=== PATIENT | female | born 1975 | race Caucasian/White ===

== ENCOUNTER → 2016-12-24 | Outpatient (CLI) | payer BC ==
--- NOTE | 2016-12-24 10:45 | XR ---
EXAMINATION TYPE: XR shoulder complete RT DATE OF EXAM: 12/24/2016 CLINICAL HISTORY: Right shoulder pain for 4 to 6 weeks. TECHNIQUE: Three views of the right shoulder are obtained. COMPARISON: None. FINDINGS: There is no acute fracture/dislocation evident in the right shoulder. Distal acromion mor phology is unremarkable. The acromioclavicular and glenohumeral joint spaces appear within normal cerrato its. The visualized ribs are intact and unremarkable. IMPRESSION: Unremarkable study.
== END | disposition home or self-care (01) ==
LOC: RADXRMAIN 10:23
PROVIDERS: ATTEND Family Medicine
DX: M24.819 Other specific joint derangements of unspecified shoulder, not elsewhere classified (principal)

== ENCOUNTER → 2016-12-28 | Outpatient (CLI) | payer BC ==
--- NOTE | 2016-12-28 12:04 | MR ---
EXAMINATION TYPE: MR shoulder RT wo con DATE OF EXAM: 12/28/2016 11:44 AM COMPARISON: NONE HISTORY: Right shoulder pain TECHNIQUE: Multiplanar multispin echo imaging of the right shoulder was performed. FINDINGS: Rotator cuff : There is thickening and heterogeneity of the supraspinatus tendon with focal increased signal noted felt to reflect partial intrasubstance tear. No evidence for full-thickness tear. Remai preet constituents of the rotator cuff are unremarkable. Bursa: No bursal effusion or thickening is seen. Musculature: There is no muscular tear, contusion, or atrophy. Acromioclavicular joint : Subacromial spurring resulting in mild impingement. Mild AC joint arthropat hy. Osseous structures : There are no fractures or regions of abnormal bone marrow signal intensity. Long biceps tendon : The biceps tendon is normally situated within the bicipital groove. No complete or partial biceps tendon tear is present. Glenohumeral Joint fluid : There is no glenohumeral joint effusion. Cartilage and Bone : No focal hyaline cartilage defects are noted. No Hill-Sachs, reverse Hill-Sachs, or bony Bankart lesions are seen. Labrum : There are no SLAP or soft tissue Bankart lesions. No paralabral cysts are seen. OTHER FINDINGS : none IMPRESSION: 1. Chronic tendinopathy supraspinatus tendon with focal intrasubstance tear. 2. Subacromial spurring with mild impingement.
== END | disposition home or self-care (01) ==
LOC: RADMRIMAIN 10:52
PROVIDERS: ATTEND Family Medicine
DX: S46.011A Strain of muscle(s) and tendon(s) of the rotator cuff of right shoulder, initial encounter (principal); M25.811 Other specified joint disorders, right shoulder

== ENCOUNTER → 2017-08-09 | Outpatient (CLI) | payer BC ==
[2017-08-09 13:52] LABS: Basophils # (A) 0.1 k/uL (0-0.2); Basophils % (A) 1 %; Eosinophils # (A) 0.2 k/uL (0-0.7); Eosinophils % (A) 2 %; HCT 40.3 % (34.0-46.0); HGB 13.3 gm/dL (11.4-16.0); Lymphocytes # (A) 3.1 k/uL (1.0-4.8); Lymphocytes % (A) 33 %; MCH 31.3 pg (25.0-35.0); MCHC 33.1 g/dL (31.0-37.0); MCV 94.7 fL (80.0-100.0); Mean Platelet Volume 7.3; Monocytes # (A) 0.4 k/uL (0-1.0); Monocytes % (A) 5 %; Neutrophils # (A) 5.3 k/uL (1.3-7.7); Neutrophils % (A) 57 %; Platelet Count 273 k/uL (150-450); RBC 4.25 m/uL (3.80-5.40); RDW 12.5 % (11.5-15.5); WBC 9.4 k/uL (3.8-10.6)
[2017-08-09 13:59] LABS: INR 1.1 (<1.2); Partial Thromboplastin Time 23.7 sec (22.0-30.0); Prothrombin Time 10.3 sec (9.0-12.0)
[2017-08-09 14:05] LABS: ALT 37 U/L (9-52); AST 28 U/L (14-36); Albumin 4.1 g/dL (3.5-5.0); Alkaline Phosphatase 72 U/L (38-126); Anion Gap 11 mmol/L; Blood Urea Nitrogen 9 mg/dL (7-17); Calcium 9.5 mg/dL (8.4-10.2); Carbon Dioxide 25 mmol/L (22-30); Chloride 105 mmol/L (98-107); Glucose 95 mg/dL (74-99); Potassium 3.7 mmol/L (3.5-5.1); Sodium 141 mmol/L (137-145); Total Bilirubin 0.4 mg/dL (0.2-1.3)
[2017-08-09 14:06] LABS: Appearance,Urine Cloudy (Clear); Bacteria,Urine Rare /hpf; Bilirubin,Urine Negative (Negative); Blood,Urine Negative (Negative); Color,Urine Yellow; Glucose,Urine (UA) Negative (Negative); Ketones,Urine Negative (Negative); Leukocyte Esterase,Urine Negative (Negative); Mucus,Urine Occasional /hpf; Nitrite,Urine Negative (Negative); Protein,Urine Trace (Negative); RBC,Urine 1 /hpf (0-5); Specific Gravity,Urine 1.025 (1.001-1.035); Squamous Epithelial Cell,Urine 10 /hpf (0-4); WBC,Urine 1 /hpf (0-5)
== END | disposition home or self-care (01) ==
LOC: LABWHC1 13:08
PROVIDERS: ATTEND Family Medicine
DX: Z01.812 Encounter for preprocedural laboratory examination (principal)
CPT/HCPCS: 36415; 80053; 81001; 85025; 85610; 85730

== ENCOUNTER 2019-04-07 06:24 | Day surgery (SDC) | payer BC ==
[2019-04-03 15:31] VITALS: BMI 33.5
[~2019-04-07 06:24] MED LIST: DEXAMETHASONE SOD PHOSPHATE 10 MG/ML 1 ML VIAL IV ONE; HEPARIN SODIUM,PORCINE 5,000 UNIT/ML 1 ML VIAL SQ ONE; LIDOCAINE 1% 20 ML VIAL (10MG/ML) FOR IV START INTRADERMA PRN; MIDAZOLAM 2 MG/2 ML VIAL IV PRN; ONDANSETRON 4 MG/2 ML VIAL IVP ONE; SCOPOLAMINE 1.5MG/72HR PATCH TRANSDERM ONE
[2019-04-07] MEDS: LACTATED RINGERS 1,000 ML IV SCH ×2 (07:10→07:55)
[2019-04-07] MEDS ORDERED: fentaNYL (PF) 50 MCG/ML 2 ML AMP IVP ONE ×2 (07:23→07:24)
[2019-04-07] MEDS ORDERED: DEXAMETHASONE SOD PHOSPHATE 4 MG/ML 1 ML VIAL ONE (07:52)
[2019-04-07] MEDS ORDERED: GLYCOPYRROLATE 0.2 MG/ML 2 ML VIAL ONE (07:52)
[2019-04-07] MEDS ORDERED: KETOROLAC 30 MG/ML 1 ML VIAL ONE (07:52)
[2019-04-07] MEDS ORDERED: NEOSTIGMINE 1 MG/ML 10 ML VIAL ONE (07:52)
[2019-04-07] MEDS ORDERED: LIDOCAINE 1% INJ 10MG/ML (20 ML MDV) ONE (07:52)
[2019-04-07] MEDS ORDERED: PROPOFOL 10 MG/ML 20 ML VIAL IV ONE (07:52)
[2019-04-07] MEDS ORDERED: fentaNYL (PF) 50 MCG/ML 2 ML AMP ONE (07:52)
[2019-04-07] MEDS ORDERED: ROPIVACAINE 5 MG/ML 30 ML VIAL ONE (07:52)
[2019-04-07] MEDS ORDERED: MIDAZOLAM 2 MG/2 ML VIAL ONE (07:52)
[2019-04-07] MEDS ORDERED: ROCURONIUM BROMIDE 10 MG/ML 10 ML VIAL IV ONE (07:52)
[2019-04-07] MEDS ORDERED: HYDROmorphone (PF) 1 MG/ML ONE (07:52)
--- NOTE | 2019-04-07 07:52 | P.GSHP ---
History of Present Illness H&P Date: 04/07/19 Chief Complaint: Incisional hernia 43-year-old female known per service. Patient has complaints of a slightly painful bulge in the upper midabdomen. This is thought to be related to previous cholecystectomy scar site. No nausea or vomiting. Increasing in size. Past Medical History Past Medical History: COPD, Fibromyalgia, GERD/Reflux, Osteoarthritis (OA), Pneumonia Additional Past Medical History / Comment(s): ? SEIZURES A CHILD,CHRONIC MIGRAINES, BACK PAIN, DIFFICULTY SLEEPING., (5) TATTOO'S., HX OF "HEAVINESS " IN CHEST., STATES YEAST INFECTIONS WHEN EVER SHE RECEIVES ANTIBIOTICS, 03/28/19 dog bite rt hand placed on augmentin. History of Any Multi-Drug Resistant Organisms: None Reported Past Surgical History: Bladder Surgery, Bowel Resection, Cholecystectomy, Hernia Repair, Hysterectomy, Tonsillectomy Additional Past Surgical History / Comment(s): 13 INCHES OF BOWEL REMOVED INFANT, SURGERY FOR ADHESIONS WITH MESH AT 8-10 YRS OLD., PARTIAL HYSTERECTOMY, UMBILICAL HERNIA., COLONOSCOPY.cystocele, rectocele, bladder suspension Past Anesthesia/Blood Transfusion Reactions: Previous Problems w/ Anesthesia, Family History of Problems w/ Anesthesia, Motion Sickness Additional Past Anesthesia/Blood Transfusion Reaction / Comment(s): STATES HEART STOPPED DURING ONE SURGERY. HX OF BLOOD TRANSFUSION AN INFANT. PTS MOTHER HAS PONV. Smoking Status: Current every day smoker - Past Family History Mother Family Medical History: Blood Disorder, Cancer Additional Family Medical History / Comment(s): BLADDER CANCER. PTS AUNT HAD BREAST CANCER ALSO. blood disorder pt unsure of name "she has to have her blood let out". Father Family Medical History: Cancer Additional Family Medical History / Comment(s): SKIN CANCER Medications and Allergies Home Medications Medication Instructions Recorded Confirmed Type Acetaminophen [Tylenol] 650 mg PO DIRECTED PRN 08/02/15 04/07/19 History Ranitidine HCl [Zantac] 150 mg PO DAILY PRN 08/02/15 04/07/19 History Amoxic-Pot Clav 875-125Mg 1 tab PO Q12HR 04/03/19 04/07/19 History [Augmentin 875-125] Allergies Allergy/AdvReac Type Severity Reaction Status Date / Time cat dander Allergy Intermediate Congestion Verified 04/07/19 06:51 grass pollen Allergy Intermediate Congestion Verified 04/07/19 06:51 Sulfa (Sulfonamide Allergy Mild Rash/Hives Verified 04/07/19 06:51 Antibiotics) adhesive Allergy skin Verified 04/07/19 06:51 irritation and peeling codeine AdvReac Mild Bumps on Verified 04/07/19 06:51 skin, rash PINE Allergy Intermediate Congestion Uncoded 04/07/19 06:51 Surgical - Exam Vital Signs Temp Pulse Resp BP Pulse Ox 97.8 F 79 16 144/78 98 04/07/19 06:48 04/07/19 06:48 04/07/19 06:48 04/07/19 06:48 04/07/19 06:48 Physical exam: General: Well-developed, well-nourished HEENT: Normocephalic, sclerae nonicteric Abdomen: Nontender, nondistended, reducible upper abdominal incisional hernia Extremities: No edema Neuro: Alert and oriented Assessment and Plan (1) Incisional hernia Narrative/Plan: Will proceed with repair open incisional hernia with mesh. Risks of bleeding, infection, recurrence, bladder and bowel injury, numbness, nerve injury were discussed with the patient. The patient understands and wishes to proceed. Current Visit: Yes Status: Acute Code(s): K43.2 - INCISIONAL HERNIA WITHOUT OBSTRUCTION OR GANGRENE SNOMED Code(s): 322556262
[2019-04-07] MEDS ORDERED: BUPIVACAINE (PF) 0.25% 30 ML VIAL SQ ONE (08:28)
[2019-04-07] MEDS ORDERED: NALOXONE 0.4 MG/ML 1 ML VIAL IV PRN (09:08)
[2019-04-07] MEDS ORDERED: HYDROcodone/APAP 5-325MG 1 EACH TAB PO PRN (09:08)
--- NOTE | 2019-04-07 09:15 | P.OP ---
Date of Procedure: 04/07/19 Procedure(s) Performed: PREOPERATIVE DIAGNOSIS: Reducible incisional hernia POSTOPERATIVE DIAGNOSIS: Same PROCEDURE: Reducible incisional hernia repair with mesh SURGEON: Jesus Alberto EBL: Minimal ANESTHESIA: Gen. COMPLICATIONS: None OPERATIVE PROCEDURE: Patient placed on the operating table in the supine position. Abdomen was prepped and draped in usual sterile fashion. The previous incision was excised in the epigastric region. A horizontal incision was made. Dissection through the subcutaneous tissues took place using electrocautery. A moderate sized was identified. The hernia sac was carefully dissected down to the level of the fascia where it was excised. There were 2 defects present. There were incorporated into one larger defect. This measured 3.5 x 2.5 cm. The 6.4 cm ventral ex mesh was placed beneath the fascia after the pre-peroneal space was dissected using electrocautery and blunt dissection. The mesh was then sutured to the fascia using trans-fascial 0 Ethibond sutures. The fascia was then reapproximated over the mesh using interrupted vest over pants mattress sutures that were 0 Ethibond as well. The folding edge was tacked down using 0 Ethibond sutures as well. The subcutaneous tissues were closed using 20 and 3-0 Vicryl sutures. The skin was closed 4-0 Monocryl lara bcuticular suture. Skin glue was then applied. DISPOSITION: Stable to recovery room
[2019-04-07 09:18] VITALS: TEMP 97
[2019-04-07] MEDS ORDERED: LACTATED RINGERS 1,000 ML IV ONE (09:21)
[2019-04-07] MEDS: HYDROmorphone 0.5 MG/0.5 ML SYRINGE IVP PRN ×3 (09:36→09:50)
[2019-04-07] MEDS ORDERED: HYDROcodone/APAP 5-325MG 1 EACH TAB PO ONE (10:21)
[2019-04-07 10:42] VITALS: BP 122/75; PULSE 71; RESP 16
--- NOTE | 2019-04-07 13:20 | P.ANPRN ---
Procedure Note - Anesthesia - Nerve Block Performed Bilateral Transversus Abdominis Single Time Out Performed: Yes Date of Procedure: 04/07/19 Procedure Start Time: : Procedure Stop Time: :32 Location of Patient Procedure: PreOp Indication: Acute Post-Operative Pain, Requested by Surgeon Sedation Type: Sedate with meaningful contact maintained Preparation: Sterile Prep Position: Supine Catheter: None Needle Types: Pajunk Needle Gauge: 21 Ultrasound used to visualize needle placement: Yes Ultrasound used to observe medication spread: Yes Injectate: 0.5% Ropivacaine (see comment for volume) ((ropivacaine 0.5% 30ml + 10ml PFNS + decadron 4mg)- 20ml/side) Blood Aspirated: No Pain Paresthesia on Injection Noted: No Resistance on Injection: Normal Image Stored and Saved: Yes Events: Uneventful and Well Tolerated
== END 2019-04-07 11:29 | disposition home or self-care (01) ==
LOC: OR 06:24
PROVIDERS: ATTEND Surgery
DX: K43.2 Incisional hernia without obstruction or gangrene (principal); K21.9 Gastro-esophageal reflux disease without esophagitis; M79.7 Fibromyalgia; J44.9 Chronic obstructive pulmonary disease, unspecified; F32.9 Major depressive disorder, single episode, unspecified; F41.9 Anxiety disorder, unspecified; M19.90 Unspecified osteoarthritis, unspecified site; G43.809 Other migraine, not intractable, without status migrainosus; G47.00 Insomnia, unspecified; F17.210 Nicotine dependence, cigarettes, uncomplicated; Z80.52 Family history of malignant neoplasm of bladder; Z80.3 Family history of malignant neoplasm of breast; Z80.8 Family history of malignant neoplasm of other organs or systems; Z88.6 Allergy status to analgesic agent; Z84.89 Family history of other specified conditions; Z90.49 Acquired absence of other specified parts of digestive tract; Z87.01 Personal history of pneumonia (recurrent); Z88.5 Allergy status to narcotic agent; Z88.2 Allergy status to sulfonamides; Z88.7 Allergy status to serum and vaccine; Z88.8 Allergy status to other drugs, medicaments and biological substances; Z91.048 Other nonmedicinal substance allergy status
CPT/HCPCS: 49560; 49568; 64488; 88302; C1781; J2250; J1644; J1100 ×2; J2710; J0690; J2405; J2001; J3010; J1885; J1170 ×2; J2795; J2704; 76942

== ENCOUNTER 2019-12-05 16:58 | Observation (INO) | payer BC ==
[2019-12-05] MEDS ORDERED: SODIUM CHLORIDE 0.9% 1,000 ML IV STA (17:17)
[2019-12-05] MEDS ORDERED: KETOROLAC 30 MG/ML 1 ML VIAL IVP STA (17:17)
[2019-12-05] MEDS ORDERED: SODIUM CHLORIDE 0.9% 500 ML 500 ML IV STA (17:17)
[2019-12-05] MEDS ORDERED: ONDANSETRON 4 MG/2 ML VIAL IVP STA (17:17)
[2019-12-05] MEDS ORDERED: HYDROmorphone 0.5 MG/0.5 ML SYRINGE IVP STA (17:17)
--- NOTE | 2019-12-05 17:57 | ED ---
General Adult HPI - General Chief complaint: Abdominal Pain Stated complaint: pancreatitis, poss blood clot Time Seen by Provider: 12/05/19 17:12 Source: patient, RN notes reviewed Mode of arrival: ambulatory Limitations: no limitations - History of Present Illness Initial comments: This a 44-year-old female presents emergency Department chief complaint abdominal pain, shortness of breath. Patient states that she has not felt well over the last week. Patient one saw primary care physician who told her that her pancreas enzymes are elevated she has no history of pancreatitis denies being a drinker denies being diabetic has had prior cholecystectomy. Patient states along with this abdominal pain rates to her back she has had some shortness of breath. She states that there was a marker that was elevated and there is concern for possible blood clot in her chest. She has no history of DVT or PE. Patient does admit that she is a smoker no official diagnosis of COPD or asthma. Patient denies any dysuria, hematuria, diarrhea constipation sh e did have 1 episode of vomiting she states that she's only been drinking water she has not been eating recently. - Related Data Home Medications Medication Instructions Recorded Confirmed Acetaminophen [Tylenol] 650 mg PO DIRECTED PRN 08/02/15 04/07/19 Ranitidine HCl [Zantac] 150 mg PO DAILY PRN 08/02/15 04/07/19 Amoxic-Pot Clav 875-125Mg 1 tab PO Q12HR 04/03/19 04/07/19 [Augmentin 875-125] Previous Rx's Medication Instructions Recorded Hydrocodone/Acetaminophen [[place] 1 tab PO Q6HR PRN 3 Days #10 tab 04/07/19 5-325] Allergies Allergy/AdvReac Type Severity Reaction Status Date / Time cat dander Allergy Intermediate Congestion Verified 12/05/19 17:05 grass pollen Allergy Intermediate Congestion Verified 12/05/19 17:05 Sulfa (Sulfonamide Allergy Mild Rash/Hives Verified 12/05/19 17:05 Antibiotics) adhesive Allergy skin Verified 12/05/19 17:05 irritation and peeling codeine AdvReac Mild Bumps on Verified 12/05/19 17:05 skin, rash PINE Allergy Intermediate Congestion Uncoded 12/05/19 17:05 Review of Systems ROS Statement: Those systems with pertinent positive or pertinent negative responses have been documented in the HPI. ROS Other: All systems not noted in ROS Statement are negative. Past Medical History Past Medical History: COPD, Fibromyalgia, GERD/Reflux, Osteoarthritis (OA), Pneumonia Additional Past Medical History / Comment(s): glaucoma History of Any Multi-Drug Resistant Organisms: None Reported Past Surgical History: Bladder Surgery, Bowel Resection, Cholecystectomy, Hernia Repair, Hysterectomy, Tonsillectomy Additional Past Surgical History / Comment(s): 13 INCHES OF BOWEL REMOVED INFANT, SURGERY FOR ADHESIONS WITH MESH AT 8-10 YRS OLD., PARTIAL HYSTERECTOMY, UMBILICAL HERNIA., COLONOSCOPY.cystocele, rectocele, bladder suspension Past Anesthesia/Blood Transfusion Reactions: Previous Problems w/ Anesthesia, Family History of Problems w/ Anesthesia, Motion Sickness Additional Past Anesthesia/Blood Transfusion Reaction / Comment(s): STATES HEART STOPPED DURING ONE SURGERY. HX OF BLOOD TRANSFUSION AN . PTS MOTHER HAS PONV. Past Psychological History: Anxiety Smoking Status: Current every day smoker Past Alcohol Use History: None Reported Past Drug Use History: None Reported - Past Family History Mother Family Medical History: Blood Disorder, Cancer Additional Family Medical History / Comment(s): BLADDER CANCER. PTS AUNT HAD BREAST CANCER ALSO. blood disorder pt unsure of name "she has to have her blood let out". Father Family Medical History: Cancer Additional Family Medical History / Comment(s): SKIN CANCER General Exam Limitations: no limitations General appearance: alert, in no apparent distress Head exam: Present: atraumatic, normocephalic, normal inspection Eye exam: Present: normal appearance, PERRL, EOMI. Absent: scleral icterus, conjunctival injection, periorbital swelling ENT exam: Present: normal exam, normal oropharynx, mucous membranes moist, TM's normal bilaterally Neck exam: Present: normal inspection, full ROM. Absent: tenderness, meningismus, lymphadenopathy Respiratory exam: Present: normal lung sounds bilaterally. Absent: respiratory distress, wheezes, rales, rhonchi, stridor Cardiovascular Exam: Present: regular rate, normal rhythm, normal heart sounds. Absent: systolic murmur, diastolic murmur, rubs, gallop, clicks GI/Abdominal exam: Present: soft, tenderness (Moderate mid to epigastric tenderness), normal bowel sounds. Absent: distended, guarding, rebound, rigid Back exam: Absent: CVA tenderness (R), CVA tenderness (L) Neurological exam: Present: alert, oriented X3 Skin exam: Present: warm, dry, intact, normal color. Absent: rash Course Vital Signs 12/05/19 17:01 Temperature 98.2 F Pulse Rate 85 Respiratory 18 Rate Blood Pressure 176/94 O2 Sat by Pulse 97 Oximetry EKG Findings - EKG Comments: EKG Findings:: EKG performed at 17:51 normal sinus rhythm rate of 74 ME 162 QRS 80 QT/QTC 416/461 - EKG Results: EKG: interpreted by MONIE Medical Decision Making - Medical Decision Making 34 show female presented for possible PE. CT of the chest is negative. Patient does have mild pancreatitis lipase is improving no pain is intractable for patient. Patient will be admitted for IV hydration, pain control. - Lab Data Result diagrams: 12/05/19 17:50 12/05/19 17:48 Lab Results 12/05/19 12/05/19 12/05/19 Range/Units 17:48 17:48 17:48 WBC (3.8-10.6) k/uL RBC (3.80-5.40) m/uL Hgb (11.4-16.0) gm/dL Hct (34.0-46.0) % MCV (80.0-100.0) fL MCH (25.0-35.0) pg MCHC (31.0-37.0) g/dL RDW (11.5-15.5) % Plt Count (150-450) k/uL Neutrophils % % Lymphocytes % % Monocytes % % Eosinophils % % Basophils % % Neutrophils # (1.3-7.7) k/uL Lymphocytes # (1.0-4.8) k/uL Monocytes # (0-1.0) k/uL Eosinophils # (0-0.7) k/uL Basophils # (0-0.2) k/uL PT 9.5 (9.0-12.0) sec INR 0.9 (<1.2) APTT 23.3 (22.0-30.0) sec Sodium 136 L (137-145) mmol/L Potassium 4.2 (3.5-5.1) mmol/L Chloride 103 (98-107) mmol/L Carbon Dioxide 19 L (22-30) mmol/L Anion Gap 14 mmol/L BUN 9 (7-17) mg/dL Creatinine 0.67 (0.52-1.04) mg/dL Est GFR (CKD-EPI)AfAm >90 (>60 ml/min/1.73 sqM) Est GFR (CKD-EPI)NonAf >90 (>60 ml/min/1.73 sqM) Glucose 89 (74-99) mg/dL Plasma Lactic Acid Camacho (0.7-2.0) mmol/L Calcium 9.7 (8.4-10.2) mg/dL Total Bilirubin 0.8 (0.2-1.3) mg/dL AST 38 H (14-36) U/L ALT 20 (4-34) U/L Alkaline Phosphatase 89 (38-126) U/L Troponin I (0.000-0.034) ng/mL Total Protein 7.8 (6.3-8.2) g/dL Albumin 4.6 (3.5-5.0) g/dL Amylase 47 (30-110) U/L Lipase 442 H (23-300) U/L Urine Color Light Yellow Urine Appearance Clear (Clear) Urine pH 5.5 (5.0-8.0) Ur Specific [place] 1.005 (1.001-1.035) Urine Protein Negative (Negative) Urine Glucose (UA) Negative (Negative) Urine Ketones 1+ H (Negative) Urine Blood Negative (Negative) Urine Nitrite Negative (Negative) Urine Bilirubin Negative (Negative) Urine Urobilinogen <2.0 (<2.0) mg/dL Ur Leukocyte Esterase Negative (Negative) 12/05/19 12/05/19 12/05/19 Range/Units 17:48 17:48 17:50 WBC 13.6 H (3.8-10.6) k/uL RBC 4.68 (3.80-5.40) m/uL Hgb 14.1 (11.4-16.0) gm/dL Hct 43.9 (34.0-46.0) % MCV 93.8 (80.0-100.0) fL MCH 30.1 (25.0-35.0) pg MCHC 32.0 (31.0-37.0) g/dL RDW 12.7 (11.5-15.5) % Plt Count 258 (150-450) k/uL Neutrophils % 65 % Lymphocytes % 25 % Monocytes % 5 % Eosinophils % 2 % Basophils % 1 % Neutrophils # 8.9 H (1.3-7.7) k/uL Lymphocytes # 3.5 (1.0-4.8) k/uL Monocytes # 0.7 (0-1.0) k/uL Eosinophils # 0.2 (0-0.7) k/uL Basophils # 0.1 (0-0.2) k/uL PT (9.0-12.0) sec INR (<1.2) APTT (22.0-30.0) sec Sodium (137-145) mmol/L Potassium (3.5-5.1) mmol/L Chloride (98-107) mmol/L Carbon Dioxide (22-30) mmol/L Anion Gap mmol/L BUN (7-17) mg/dL Creatinine (0.52-1.04) mg/dL Est GFR (CKD-EPI)AfAm (>60 ml/min/1.73 sqM) Est GFR (CKD-EPI)NonAf (>60 ml/min/1.73 sqM) Glucose (74-99) mg/dL Plasma Lactic Acid Camacho 0.9 (0.7-2.0) mmol/L Calcium (8.4-10.2) mg/dL Total Bilirubin (0.2-1.3) mg/dL AST (14-36) U/L ALT (4-34) U/L Alkaline Phosphatase (38-126) U/L Troponin I <0.012 (0.000-0.034) ng/mL Total Protein (6.3-8.2) g/dL Albumin (3.5-5.0) g/dL Amylase (30-110) U/L Lipase (23-300) U/L Urine Color Urine Appearance (Clear) Urine pH (5.0-8.0) Ur Specific [place] (1.001-1.035) Urine Protein (Negative) Urine Glucose (UA) (Negative) Urine Ketones (Negative) Urine Blood (Negative) Urine Nitrite (Negative) Urine Bilirubin (Negative) Urine Urobilinogen (<2.0) mg/dL Ur Leukocyte Esterase (Negative) Disposition Clinical Impression: Intractable abdominal pain, Acute pancreatitis Disposition: ADMITTED IP TO THIS [facility] Condition: Fair Referrals: Terese Ramos MD [Primary Care Provider] - 1-2 days
[2019-12-05 18:00] LABS: Basophils # (A) 0.1 k/uL (0-0.2); Basophils % (A) 1 %; Eosinophils # (A) 0.2 k/uL (0-0.7); Eosinophils % (A) 2 %; HCT 43.9 % (34.0-46.0); HGB 14.1 gm/dL (11.4-16.0); Lymphocytes # (A) 3.5 k/uL (1.0-4.8); Lymphocytes % (A) 25 %; MCH 30.1 pg (25.0-35.0); MCV 93.8 fL (80.0-100.0); Mean Platelet Volume 7.5; Monocytes # (A) 0.7 k/uL (0-1.0); Monocytes % (A) 5 %; Neutrophils # (A) 8.9 k/uL (1.3-7.7); Neutrophils % (A) 65 %; Platelet Count 258 k/uL (150-450); RBC 4.68 m/uL (3.80-5.40); RDW 12.7 % (11.5-15.5); WBC 13.6 k/uL (3.8-10.6)
[2019-12-05 18:08] LABS: ALT 20 U/L (4-34); AST 38 U/L (14-36); African American GFR (CKD) >90 (>60 ml/min/1.73 sqM); Albumin 4.6 g/dL (3.5-5.0); Alkaline Phosphatase 89 U/L (38-126); Amylase 47 U/L (30-110); Anion Gap 14 mmol/L; Appearance,Urine Clear (Clear); Bilirubin,Urine Negative (Negative); Blood Urea Nitrogen 9 mg/dL (7-17); Blood,Urine Negative (Negative); Calcium 9.7 mg/dL (8.4-10.2); Carbon Dioxide 19 mmol/L (22-30); Chloride 103 mmol/L (98-107); Color,Urine Light Yellow; Glucose 89 mg/dL (74-99); Glucose,Urine (UA) Negative (Negative); Ketones,Urine 1+ (Negative); Leukocyte Esterase,Urine Negative (Negative); Nitrite,Urine Negative (Negative); Non-African American GFR(CKD) >90 (>60 ml/min/1.73 sqM); PH, Urine 5.5 (5.0-8.0); Potassium 4.2 mmol/L (3.5-5.1); Protein,Urine Negative (Negative); Sodium 136 mmol/L (137-145); Specific Gravity,Urine 1.005 (1.001-1.035); Total Bilirubin 0.8 mg/dL (0.2-1.3); Total Protein 7.8 g/dL (6.3-8.2); Urobilinogen,Urine <2.0 mg/dL (<2.0)
[2019-12-05 18:14] LABS: INR 0.9 (<1.2); Partial Thromboplastin Time 23.3 sec (22.0-30.0); Prothrombin Time 9.5 sec (9.0-12.0)
--- NOTE | 2019-12-05 18:39 | CT ---
EXAMINATION TYPE: CT chest angio for PE DATE OF EXAM: 12/05/2019 COMPARISON: None HISTORY: chest pain, hx of DVT CT DLP: 423.8 mGycm Automated exposure control for dose reduction was used. CONTRAST: Performed with IV Contrast, patient injected with 100 mL of Isovue 370. There are 3-D post processed images. The lungs are clear of infiltrate. There is no pleural effusion. There is no pericardial effusion. He art size is fairly normal. There is no mediastinal adenopathy. There are no hilar masses. Thoracic aorta is intact. There is no aneurysm or dissection. There is normal contrast opacification of the pulmonary arteries. There are no filling defects. The b nathaly thorax is intact. There is no compression fracture. Upper abdominal soft tissues are intact. Impression negative CT angiogram of the chest. No evidence of pulmonary embolism.
--- NOTE | 2019-12-05 18:53 | CT ---
EXAMINATION TYPE: CT abdomen pelvis w con and chest DATE OF EXAM: 12/05/2019 COMPARISON: 04/23/2010 HISTORY: abdominal pain CT DLP: 1098 mGycm Automated exposure control for dose reduction was used. CONTRAST: Performed with IV Contrast, patient injected with 100 mL of Isovue 370. There are 3-D post processed images. Lung bases are clear. There is no pleural effusion. Heart size is fairly normal. There is no pericard ial effusion. There is some fatty infiltration of the liver. Stomach pancreas spleen appear normal. B ile ducts are not dilated. There are clips from cholecystectomy. There is no adrenal mass. Kidneys show satisfactory contrast opacification. There is no hydronephrosi s. Ureters are not dilated. There is no retroperitoneal adenopathy. Bladder distends smoothly. There is no evidence of a pelvic mass. There is no free fluid in the pelvis. Appendix appears normal. There is no mesenteric edema. There is no ascites or free air. There is no sign of a bowel obstruction. Th ere is hysterectomy. Lumbar vertebra have normal spacing and alignment. Posterior elements are intact. Bony pelvis is inta ct. Abdominal aorta is atheromatous. The lungs are clear of consolidation. There is no pleural effusion. There are no hilar masses. There is no mediastinal adenopathy. There is normal contrast opacification of the pulmonary arteries. There are no filling defects. Thoracic aorta shows no aneurysm or dissection. Thoracic spine is intact. IMPRESSION: No evidence of pulmonary embolism. No evidence of cardiopulmonary disease. Mild fatty infiltration of the liver. Negative CT scan of the abdomen and pelvis.
[2019-12-05] MEDS ORDERED: KETOROLAC 30 MG/ML 1 ML VIAL IVP PRN (18:56)
[2019-12-05] MEDS ORDERED: NALOXONE 0.4 MG/ML 1 ML VIAL IV PRN ×2 (18:56→22:34)
[2019-12-05] MEDS: HYDROmorphone 0.5 MG/0.5 ML SYRINGE IVP PRN (19:13)
[2019-12-05] MEDS ORDERED: NICOTINE 21MG/24HR PATCH TRANSDERM STA (22:29)
--- NOTE | 2019-12-05 22:37 | P.HPIM ---
History of Present Illness H&P Date: 12/05/19 The patient was seen and examined in the emergency room at 7:30 PM on 12/04. The patient is a 44-year-old female non-drinker with a PMH of tobacco abuse and fibromyalgia (with a nearly daily use of NSAIDs) who was sent to the ED by her PMD Dr. Ramos with complaints of epigastric abdominal pain and shortness of breath. The patient notes that her symptoms have been ongoing for the past 1 week, with her pain being constant, epigastric, 10 out of 10 in maximum intensity, nonexertional, burning in nature, with radiation to the back, worsened by drinking soda, and somewhat alleviated by sitting forward. The patient also notes that her pain is made worse by taking deep breaths. She also reports a similar episode of vomiting yesterday nonbloody. She otherwise denied fever, chills, diarrhea, blood in stools, chest pain, palpitations, dizziness, or diaphoresis. The patient reports that she was diagnosed with peptic ulcer disease in her teenage years and has used antacids on and off. The patient had presented to her PMDs office yesterday where she was given Protonix, sucralfate, Norcos, with lipase and d-dimer ordered, which resulted in both being elevated. The patient was subsequently referred to the emergency room. At time of interview, she notes that her pain is a 3 out of 10. In the ED, the patient's chest CTA was negative for PE with CT abdomen and pelvis showing mild fatty infiltration of the liver. EKG revealed normal sinus rhythm at [address]/T-wave changes noted. Laboratory evaluation revealed a troponin of less than 0.012, lipase 442, WBC count of 13.6, hemoglobin 14.1, platelets 258, sodium 136, CO2 19, BUN 9, creatinine 0.67, AST 38, ALT 20, and alkaline phosphatase 89. Review of Systems Pertinent positives and negatives as discussed in HPI, a complete review of systems was performed and all other systems are negative. Past Medical History Past Medical History: COPD, Fibromyalgia, GERD/Reflux, Osteoarthritis (OA), Pneumonia Additional Past Medical History / Comment(s): glaucoma History of Any Multi-Drug Resistant Organisms: None Reported Past Surgical History: Bladder Surgery, Bowel Resection, Cholecystectomy, Hernia Repair, Hysterectomy, Tonsillectomy Additional Past Surgical History / Comment(s): 13 INCHES OF BOWEL REMOVED , SURGERY FOR ADHESIONS WITH MESH AT 8-10 YRS OLD., PARTIAL HYSTERECTOMY, UMBILICAL HERNIA., COLONOSCOPY.cystocele, rectocele, bladder suspension Past Anesthesia/Blood Transfusion Reactions: Previous Problems w/ Anesthesia, Family History of Problems w/ Anesthesia, Motion Sickness Additional Past Anesthesia/Blood Transfusion Reaction / Comment(s): STATES HEART STOPPED DURING ONE SURGERY. HX OF BLOOD TRANSFUSION AN . PTS MOTHER HAS PONV. Past Psychological History: Anxiety Smoking Status: Current every day smoker Past Alcohol Use History: None Reported Past Drug Use History: None Reported - Past Family History Mother Family Medical History: Blood Disorder, Cancer Additional Family Medical History / Comment(s): BLADDER CANCER. PTS AUNT HAD BREAST CANCER ALSO. blood disorder pt unsure of name "she has to have her blood let out". Father Family Medical History: Cancer Additional Family Medical History / Comment(s): SKIN CANCER Medications and Allergies Home Medications Medication Instructions Recorded Confirmed Type Brimonidine Tartrate/Timolol 1 drop BOTH EYES TID 12/05/19 12/05/19 History [Combigan 0.2%-0.5% Eye Drops] Brinzolamide [Azopt 1% Ophth Susp] 1 drop BOTH EYES BID 12/05/19 12/05/19 History Hydrocodone/Acetaminophen [[place] 1 tab PO TID 12/05/19 12/05/19 History 5-325] Latanoprost [Xalatan 0.005%] 1 drop BOTH EYES HS 12/05/19 12/05/19 History Ondansetron [Zofran] 4 mg PO TID PRN 12/05/19 12/05/19 History Pantoprazole Sodium [Protonix] 40 mg PO BID 12/05/19 12/05/19 History Pilocarpine 2% Ophth Soln [Isopto 1 drops BOTH EYES Q4H 12/05/19 12/05/19 History Carpine 2%] Sucralfate [Carafate] 1 gm PO TID 12/05/19 12/05/19 History Allergies Allergy/AdvReac Type Severity Reaction Status Date / Time cat dander Allergy Intermediate Congestion Verified 12/05/19 20:39 grass pollen Allergy Intermediate Congestion Verified 12/05/19 20:39 Sulfa (Sulfonamide Allergy Mild Rash/Hives Verified 12/05/19 20:39 Antibiotics) adhesive Allergy skin Verified 12/05/19 20:39 irritation and peeling codeine AdvReac Mild Bumps on Verified 12/05/19 20:39 skin, rash pravastatin AdvReac MUSCLE Verified 12/05/19 20:39 SPASMS [place] Allergy Intermediate Congestion Uncoded 12/05/19 17:05 Physical Exam Vitals: Vital Signs Temp Pulse Resp BP Pulse Ox 12/05/19 19:14 77 16 142/77 99 12/05/19 17:01 98.2 F 85 18 176/94 97 Intake and Output 12/05/19 12/05/19 12/05/19 06:59 14:59 22:59 Other: Weight 78.018 kg General: non toxic, no distress, appears at stated age, obese Derm: no unusual rashes/lesions no unusual ecchymoses, warm, dry Head: atraumatic, normocephalic, symmetric Eyes: EOMI, no lid lag, anicteric sclera, pupils equal round reactive to light ENT: Nose and ears atraumatic, no thrush, no pharyngeal erythema Neck: No thyromegaly, no cervical lymphadenopathy, trachea midline, supple Mouth: no lip lesion, mucus membranes moist Cardiovascular: S1S2 reg, no murmur, positive posterior tibial pulse bilateral, no edema, capillary refill less than 2 seconds Lungs: CTA bilateral, no rhonchi, no rales , no accessory muscle use Abdominal: soft, epigastric abdominal tenderness, no guarding, no appreciable organomegaly, normal bowel sounds Ext: no gross muscle atrophy, muscle strength 5 out of 5 in all 4 extremities grossly, no contractures, Neuro: CN II-XI grossly intact, light touch intact all 4 extremities, finger to nose within normal limits, Psych: Alert, oriented, appropriate affect Results CBC & Chem 7: 12/05/19 17:50 12/05/19 17:48 Labs: Abnormal Lab Results - Last 24 Hours (Table) 12/05/19 12/05/19 12/05/19 Range/Units 17:48 17:48 17:50 WBC 13.6 H (3.8-10.6) k/uL Neutrophils # 8.9 H (1.3-7.7) k/uL Sodium 136 L (137-145) mmol/L Carbon Dioxide 19 L (22-30) mmol/L AST 38 H (14-36) U/L Lipase 442 H (23-300) U/L Urine Ketones 1+ H (Negative) Assessment and Plan Plan: Abdominal pain with nausea and vomiting, likely secondary to peptic ulcer disease versus acute pancreatitis less likely -Consult GI, patient will likely need endoscopy -Continue with by mouth Protonix -Hold off on NSAIDs -Continue with IV fluids -Clear liquid diet for now Elevated lipase, possibly secondary to peptic ulcer disease -Monitor for now Leukocytosis, likely due to acute distress -No signs of active infection at this time -Monitor for now Tobacco abuse -Nicotine patch -Advised on the importance of cessation DVT prophylaxis -Heparin subq The patient is admitted with an anticipated less than 2 midnight stay for evaluation of abdominal pain CODE STATUS: Full Code Discussed with: Patient Anticipated discharge date: 1-[address]: Home A total of 40 minutes was spent on the care of this complex patient more than 50% of the time was spent in counseling and care coordination.
[2019-12-05] MEDS: HYDROmorphone 1 MG/ML 1 ML SYRINGE IVP PRN (22:38)
[2019-12-05] MEDS: ONDANSETRON 4 MG/2 ML VIAL IVP PRN (22:39)
[2019-12-06] MEDS: PANTOPRAZOLE 40 MG TABLET PO SCH ×3 (00:31→16:48)
[2019-12-06] MEDS: HEPARIN SODIUM,PORCINE 5,000 UNIT/ML 1 ML VIAL SQ SCH ×2 (00:31→08:14)
[2019-12-06] MEDS: SODIUM CHLORIDE 0.9% 1,000 ML IV SCH ×3 (00:31→13:43)
[2019-12-06] MEDS: PILOCARPINE 2% OPHTH DROPS 15 ML BTL BOTH EYES SCH ×7 (01:14→21:51)
[2019-12-06] MEDS: HYDROmorphone 1 MG/ML 1 ML SYRINGE IVP PRN ×7 (02:17→21:52)
[2019-12-06] MEDS: DORZOLAMIDE HCL 2% DROPS 10 ML BTL BOTH EYES SCH ×2 (08:14→21:52)
[2019-12-06] MEDS: ONDANSETRON 4 MG/2 ML VIAL IVP PRN ×2 (08:14→14:24)
[2019-12-06] MEDS: NON FORMULARY DRUG (Brimonidine Tartrate/Timolol [Combigan 0.2%-0.5% Eye Drops] 1 DROP) BOTH EYES SCH ×3 (08:16→21:54)
[2019-12-06 10:06] LABS: Basophils % (A) 1 %; Eosinophils # (A) 0.1 k/uL (0-0.7); Eosinophils % (A) 2 %; HCT 39.9 % (34.0-46.0); HGB 12.6 gm/dL (11.4-16.0); Lymphocytes % (A) 30 %; MCH 30.5 pg (25.0-35.0); MCHC 31.7 g/dL (31.0-37.0); Mean Platelet Volume 7.6; Monocytes # (A) 0.5 k/uL (0-1.0); Monocytes % (A) 7 %; Neutrophils # (A) 3.9 k/uL (1.3-7.7); Neutrophils % (A) 58 %; Platelet Count 203 k/uL (150-450); RBC 4.15 m/uL (3.80-5.40); RDW 12.9 % (11.5-15.5); WBC 6.7 k/uL (3.8-10.6)
[2019-12-06 10:20] LABS: African American GFR (CKD) >90 (>60 ml/min/1.73 sqM); Anion Gap 7 mmol/L; Blood Urea Nitrogen 8 mg/dL (7-17); Calcium 8.5 mg/dL (8.4-10.2); Carbon Dioxide 24 mmol/L (22-30); Chloride 105 mmol/L (98-107); Glucose 80 mg/dL (74-99); Non-African American GFR(CKD) >90 (>60 ml/min/1.73 sqM); Sodium 136 mmol/L (137-145)
--- NOTE | 2019-12-06 10:24 | P.PN ---
Subjective Progress Note Date: 12/06/19 Principal diagnosis: Vomiting Patient is feeling overall better but she is still having some nausea. Also having epigastric pain as well. No vomiting. No fevers or chills. Objective - Vital Signs Vital signs: Vital Signs Temp 98.1 F 12/06/19 07:57 Pulse 71 12/06/19 07:57 Resp 18 12/06/19 07:57 BP 120/71 12/06/19 07:57 Pulse Ox 97 12/06/19 07:57 Intake & Output 12/05/19 12/06/19 12/06/19 18:59 06:59 18:59 Weight 78.018 kg 78.018 kg Other: # Voids 1 1 # Bowel Movements 1 1 - Exam Constitutional: No acute distress, conversant, pleasant Eyes:Anicteric sclerae, moist conjunctiva, no lid-lag, PERRLA, ENMT: Oropharynx clear, no erythema, exudates Neck: Supple, FROM, no masses, or JVD, No carotid bruits, No thyromegaly Lungs: Clear to auscultation, Clear to percussion, Normal respiratory effort, no accessory muscle use Cardiovascular: Heart regular in rate and rhythm, No murmurs, gallops, or rubs, No peripheral edema Abdominal: Soft, epigastric tenderness, no guarding, rebound or rigidity, Normoactive bowel sounds, No hepatomegaly, No splenomegaly, No palpable mass Skin: Normal temperature, tone, texture, turgor, no induration, No subcutaneous nodules, No rash, lesions, No ulcers Extremities: No digital cyanosis, No clubbing, Pedal pulses intact and symmetrical, Radial pulses intact and symmetrical, No calf tenderness Psychiatric: Alert and oriented to person, place and time, appropriate affect, intact judgement Neuro: Muscles Strength 5/5 in all 4 extremities, Sensation to light touch grossly present throughout, Cranial nerves II-XII grossly intact, no focal sensory deficits - Labs CBC & Chem 7: 12/06/19 09:37 12/06/19 09:37 Labs: Abnormal Lab Results - Last 24 Hours (Table) 12/05/19 12/05/19 12/05/19 Range/Units 17:48 17:48 17:50 WBC 13.6 H (3.8-10.6) k/uL Neutrophils # 8.9 H (1.3-7.7) k/uL Sodium 136 L (137-145) mmol/L Carbon Dioxide 19 L (22-30) mmol/L AST 38 H (14-36) U/L Lipase 442 H (23-300) U/L Urine Ketones 1+ H (Negative) 12/06/19 Range/Units 09:37 WBC (3.8-10.6) k/uL Neutrophils # (1.3-7.7) k/uL Sodium 136 L (137-145) mmol/L Carbon Dioxide (22-30) mmol/L AST (14-36) U/L Lipase (23-300) U/L Urine Ketones (Negative) Assessment and Plan Plan: Abdominal pain with nausea and vomiting, likely secondary to peptic ulcer disease -Consulted GI, patient will likely need endoscopy -Clear liquid diet -Maalox and Protonix -Hold off on NSAIDs -Continue with IV fluids Elevated lipase, possibly secondary to peptic ulcer disease -Lipase back to normal Tobacco abuse -Nicotine patch -Advised on the importance of cessation DVT prophylaxis -Heparin subq Anticipated discharge date: 1-[address]: Home
[2019-12-06] MEDS: MAG HYDROX/AL HYDROX/SIMETH 30 ML CUP PO PRN ×2 (12:14→12:17)
[2019-12-06] MEDS: NICOTINE 21MG/24HR PATCH TRANSDERM SCH (13:13)
[2019-12-06] MEDS ORDERED: LATANOPROST 0.005% OPHTH DROPS 2.5 ML BTL BOTH EYES SCH (21:00)
--- NOTE | 2019-12-06 22:41 | CONS ---
CONSULTATION DATE OF DICTATION: 12/06/2019 REASON FOR CONSULTATION: Epigastric pain, nausea and vomiting. HISTORY OF PRESENT ILLNESS: The patient is a 44-year-old pleasant white female with history of peptic ulcer disease and fibromyalgia in the past who was admitted to the hospital because of severe epigastric pain associated with nausea and vomiting for the last one week duration. She had several episodes of emesis. She initially thought it was related to GERD, but her symptoms continued to progressively get worse, and hence she came into the emergency room and was subsequently admitted to the hospital for further evaluation. She was noted to have mild elevation of lipase. She has a prior history of peptic ulcer disease diagnosed at age 14. She has been taking Motrin regularly for fibromyalgia. In the ER, she was noted to have mild elevation of lipase with normal ALT and AST, T- bilirubin and alkaline phosphatase. PAST MEDICAL HISTORY: Her past medical history is significant for GERD, COPD, fibromyalgia, osteoarthritis, prior history of peptic ulcer disease. PAST SURGICAL HISTORY: Bladder surgery, bowel resection, cholecystectomy, hernia repair, tonsillectomy, partial hysterectomy, umbilical hernia repair. MEDICATIONS: Medications at home include Ken[place] p.r.n., Zofran, Protonix, Carafate. FAMILY HISTORY: Mother had bladder cancer. Father had skin cancer. SOCIAL HISTORY: Chronic smoker. No alcohol use. ALLERGIES: SULFA, CODEINE, PRAVASTATIN. REVIEW OF SYSTEMS: CARDIOPULMONARY: No chest pain or shortness of breath. GENITOURINARY: No dysuria or hematuria. MUSCULOSKELETAL: Unremarkable. SKIN: Unremarkable. ENDOCRINE: Unremarkable. PSYCHIATRIC: Unremarkable. NEUROLOGY: Unremarkable. ENT/VISION: Unremarkable. CONSTITUTIONAL: No recent weight loss. No fever, chills, night sweats. PHYSICAL EXAMINATION: Appears comfortable. No apparent distress. Vital signs are stable. Blood pressure is 139/78, pulse rate 59, temperature 98.1. HEENT examination unremarkable. Conjunctivae pink. Sclerae anicteric. Oral cavity no lesions. NECK: No JVD or lymph node enlargement. CHEST: Clear to auscultation. HEART: Regular rate and rhythm. ABDOMEN: Soft. There was tenderness in the epigastric area. The rest of the abdomen was benign. Bowel sounds are positive. No organomegaly. EXTREMITIES: No pedal edema. SKIN: No rashes. NEUROLOGIC: Alert and oriented x3. No focal deficits. LABS: WBC 13.6, hemoglobin 14.1, platelets normal. Lipase was 442. Today it is 235. ALT, AST, T-bilirubin and alkaline phosphatase are normal. Basic metabolic panel is within normal limits. She did have a CT of the abdomen and pelvis done in the emergency room that showed fatty infiltration of the liver; otherwise unremarkable. IMPRESSION: 1. This lady presented with epigastric pain for the last one week duration associated with nausea and vomiting for the same duration. CT of the abdomen showed mild fatty infiltration of the liver. She was noted to have mild elevation of lipase which appears to be nonspecific; doubt we are dealing with acute pancreatitis. Rule out peptic ulcer disease in view of recent NSAID use. 2. History of fibromyalgia. 3. Prior history of peptic ulcer disease. RECOMMENDATIONS: 1. Continue with Protonix 40 mg twice daily. 2. Antiemetics as needed. 3. Clear liquids. 4. EGD tomorrow. Discussed with the patient risks, benefits and complications, and she is agreeable to it. Thank you for this consultation. SALLIE / CAROLINAN: [id number] /
[2019-12-07] MEDS: PILOCARPINE 2% OPHTH DROPS 15 ML BTL BOTH EYES SCH ×4 (01:11→12:15)
[2019-12-07] MEDS: HYDROmorphone 0.5 MG/0.5 ML SYRINGE IVP PRN ×2 (01:13→05:26)
[2019-12-07 04:49] VITALS: TEMP 98
[2019-12-07 07:57] VITALS: RESP 12
[2019-12-07] MEDS: SODIUM CHLORIDE 0.9% 1,000 ML IV SCH (08:00)
[2019-12-07] MEDS: PANTOPRAZOLE 40 MG TABLET PO SCH (08:00)
[2019-12-07] MEDS: NICOTINE 21MG/24HR PATCH TRANSDERM SCH (08:00)
[2019-12-07] MEDS: DORZOLAMIDE HCL 2% DROPS 10 ML BTL BOTH EYES SCH (08:01)
[2019-12-07] MEDS: NON FORMULARY DRUG (Brimonidine Tartrate/Timolol [Combigan 0.2%-0.5% Eye Drops] 1 DROP) BOTH EYES SCH (08:02)
[2019-12-07] MEDS ORDERED: LIDOCAINE 1% INJ 10MG/ML (20 ML MDV) ONE (11:44)
[2019-12-07] MEDS ORDERED: PROPOFOL 10 MG/ML 20 ML VIAL IV ONE (11:44)
[2019-12-07] MEDS ORDERED: IV FLUID CONTINUATION 400 ML IV ONE (11:46)
--- NOTE | 2019-12-07 12:07 | P.PCN ---
Date of Procedure: 12/07/19 Description of Procedure: BRIEF HISTORY: Patient is a 44-year-old female presenting to the hospital with complaints of epigastric abdominal pain. Last seen 1 week in duration with associated nausea and vomiting. Computed tomography scan of the abdomen showed mild fatty infiltration of the liver she also had mild elevation of lipase. She does take NSAID medications. PROCEDURE PERFORMED: Esophagogastroduodenoscopy with biopsy. PREOPERATIVE DIAGNOSIS: Epigastric abdominal pain. ESTIMATED BLOOD LOSS: Minimal. IV sedation per anesthesia. PROCEDURE: After informed consent was obtained, the patient was brought into the endoscopy unit. IV sedation was administered by Anesthesia under continuous monitoring. Initially the Olympus GIF-190 video endoscope was inserted into the mouth. Esophagus intubated without any difficulty. It was gradually advanced into the stomach and duodenum and carefully examined. The bulb and the second part of the duodenum appeared normal, except for some mild scattered erythema suggestive of mild duodenitis with biopsies taken. The scope at this time was withdrawn to the stomach, adequately insufflated with air, and upon careful examination, mucosa of the antrum, body, cardia and the fundus appeared normal, except for some mild punctate erythema in the antrum and body suggestive of mild gastritis with biopsies taken. The scope was then withdrawn into the esophagus. The GE junction was located at 37 cm from the incisors and appeared normal with biopsies taken. The esophagus appeared normal. There were no erosions or ulcerations seen and the patient tolerated the procedure well. IMPRESSION: 1. Mild gastritis antrum and body, biopsied. 2. Out duodenitis, biopsied. 3. Biopsies of the GE junction. RECOMMENDATIONS: The findings of this examination were discussed with the patient. Okay to resume diet. Okay to resume medications. Await pathology from biopsies. Continue medical management.
[2019-12-07] MEDS: HYDROmorphone 1 MG/ML 1 ML SYRINGE IVP PRN (12:13)
[2019-12-07 12:48] VITALS: BP 155/74; PULSE 80
--- NOTE | 2019-12-07 14:18 | P.DS ---
Providers Date of admission: 12/05/19 19:01 Expected date of discharge: 12/07/19 Attending physician: Karen Gee DO Consults: 12/05/19 22:36 Consult Physician Routine Consulting Provider: Bessie Lizarraga Consult Reason/Comments: Abdominal pain, suspected PUD Do you want consulting provider notified?: Yes Primary care physician: Terese Ramos [facility] Hospital Course: The patient is a 44-year-old female non-drinker with a PMH of tobacco abuse and fibromyalgia (with a nearly daily use of NSAIDs) who was sent to the ED by her PMD Dr. Ramos with complaints of epigastric abdominal pain and shortness of breath. Symptoms were ongoing for the past 1 week, with her pain being constant, epigastric, 10 out of 10 in maximum intensity, nonexertional, burning in nature, with radiation to the back, worsened by drinking soda, and somewhat alleviated by sitting forward. This was associated with vomiting as well. She otherwise denied fever, chills, diarrhea, blood in stools, chest pain, palpitations, dizziness, or diaphoresis. Patient's primary care physician suspected peptic ulcer disease due to using NSAIDs on a daily basis and prescribed Protonix, sucralfate, Norcos, with lipase and d-dimer ordered, which resulted in both being elevated. The patient was subsequently referred to the emergency room. In the ED, the patient's chest CTA was negative for PE with CT abdomen and pelvis showing mild fatty infiltration of the liver. EKG revealed normal sinus rhythm at [address]/T-wave changes noted. Laboratory evaluation revealed a troponin of less than 0.012, lipase 442, WBC count of 13.6, hemoglobin 14.1, platelets 258, sodium 136, CO2 19, BUN 9, creatinine 0.67, AST 38, ALT 20, and alkaline phosphatase 89. Patient was admitted, she was started on antiemetics, IV Protonix and IV fluids. She was seen by GI who did an EGD today which showed mild gastritis. Today she is feeling symptomatically better. She is able to keep her food down. No vomiting. She will be discharged with instructions not to use any more NSAIDs. She will also be continued on PPI. I added Maalox to her regimen as well. Patient will need to follow-up with her primary care physician to determine the best course of action for her chronic pain control. Patient Condition at Discharge: Fair Plan - Discharge Summary Discharge Rx Participant: No New Discharge Prescriptions: New Mag Hydrox/Al Hydrox/Simeth [Maalox] 30 ml PO QID PRN 20 Days #360 ml PRN Reason: Dyspepsia Continue Hydrocodone/Acetaminophen [[place] 5-325] 1 tab PO TID Sucralfate [Carafate] 1 gm PO TID [place]ocarpine 2% Ophth Soln [Isopto Carpine 2%] 1 drops BOTH EYES Q4H Ondansetron [Zofran] 4 mg PO TID PRN PRN Reason: Nausea Pantoprazole Sodium [Protonix] 40 mg PO BID Latanoprost [Xalatan 0.005%] 1 drop BOTH EYES HS Brimonidine Tartrate/Timolol [Combigan 0.2%-0.5% Eye Drops] 1 drop BOTH EYES TID Brinzolamide [Azopt 1% Ophth Susp] 1 drop BOTH EYES BID Discharge Medication List Brimonidine Tartrate/Timolol [Combigan 0.2%-0.5% Eye Drops] 1 drop BOTH EYES TID 12/05/19 [History] Brinzolamide [Azopt 1% Ophth Susp] 1 drop BOTH EYES BID 12/05/19 [History] Hydrocodone/Acetaminophen [[place] 5-325] 1 tab PO TID 12/05/19 [History] Latanoprost [Xalatan 0.005%] 1 drop BOTH EYES HS 12/05/19 [History] Ondansetron [Zofran] 4 mg PO TID PRN 12/05/19 [History] Pantoprazole Sodium [Protonix] 40 mg PO BID 12/05/19 [History] Pilocarpine 2% Ophth Soln [Isopto Carpine 2%] 1 drops BOTH EYES Q4H 12/05/19 [History] Sucralfate [Carafate] 1 gm PO TID 12/05/19 [History] Mag Hydrox/Al Hydrox/Simeth [Maalox] 30 ml PO QID PRN 20 Days #360 ml 12/07/19 [Rx] Follow up Appointment(s)/Referral(s): Terese Ramos MD [Primary Care Provider] - 1-2 days Patient Instructions/Handouts: Gastritis (DC)
== END 2019-12-07 15:00 | disposition home or self-care (01) ==
LOC: EC 16:58 → 1SOBS 19:01
PROVIDERS: ADMIT Internal Medicine; ATTEND Internal Medicine
DX: K29.50 Unspecified chronic gastritis without bleeding (principal); K63.89 Other specified diseases of intestine; K22.8 Other specified diseases of esophagus; K29.80 Duodenitis without bleeding; R74.8 Abnormal levels of other serum enzymes; K76.0 Fatty (change of) liver, not elsewhere classified; R06.02 Shortness of breath; F17.210 Nicotine dependence, cigarettes, uncomplicated; J44.9 Chronic obstructive pulmonary disease, unspecified; M79.7 Fibromyalgia; K21.9 Gastro-esophageal reflux disease without esophagitis; M19.90 Unspecified osteoarthritis, unspecified site; H40.9 Unspecified glaucoma; F41.9 Anxiety disorder, unspecified; E66.9 Obesity, unspecified; Z68.33 Body mass index [BMI] 33.0-33.9, adult; Z03.818 Encounter for observation for suspected exposure to other biological agents ruled out; Z90.49 Acquired absence of other specified parts of digestive tract; Z91.09 Other allergy status, other than to drugs and biological substances; Z88.2 Allergy status to sulfonamides; Z88.5 Allergy status to narcotic agent; Z87.01 Personal history of pneumonia (recurrent); Z98.890 Other specified postprocedural states; Z87.19 Personal history of other diseases of the digestive system; Z90.710 Acquired absence of both cervix and uterus; Z90.89 Acquired absence of other organs; Z87.42 Personal history of other diseases of the female genital tract; Z87.448 Personal history of other diseases of urinary system; Z91.89 Other specified personal risk factors, not elsewhere classified; Z87.898 Personal history of other specified conditions; Z79.891 Long term (current) use of opiate analgesic; Z79.899 Other long term (current) drug therapy; Z87.11 Personal history of peptic ulcer disease; Z79.1 Long term (current) use of non-steroidal anti-inflammatories (NSAID); Z88.8 Allergy status to other drugs, medicaments and biological substances; Z84.89 Family history of other specified conditions; Z83.2 Family history of diseases of the blood and blood-forming organs and certain disorders involving the immune mechanism; Z80.52 Family history of malignant neoplasm of bladder; Z80.3 Family history of malignant neoplasm of breast; Z80.8 Family history of malignant neoplasm of other organs or systems
CPT/HCPCS: 96361 ×2; 96372; 96376 ×2; 96374; 96375; 99285; 36415; 93005; 80053; 80048; 82150; 83605; 83690 ×2; 84484; 85025 ×2; 85610; 85730; 81003; 71275; 74177; 43239; G0378 ×3; U0003; S4990 ×3; J1644; J2405 ×2; J2001; J1885; J1170 ×5; J2704; Q9967; 88305; 88342

== ENCOUNTER → 2019-12-05 | Outpatient (CLI) | payer BC ==
--- NOTE | 2019-12-05 10:15 | US ---
EXAMINATION TYPE: US abdomen complete DATE OF EXAM: 12/05/2019 COMPARISON: CT 2009 CLINICAL HISTORY: Z85.3 Personal History of Breast Cancer. Epigastric pain, history of cholecystectom y EXAM MEASUREMENTS: Liver Length: 14.8 cm CBD: 0.6 cm Spleen: 10.8 cm Right Kidney: 10.3 x 5.1 x 4.5 cm Left Kidney: 10.1 x 5.0 x 4.1 cm Pancreas: visualized portions wnl, limited by overlying midline bowel gas Liver: heterogeneous Gallbladder: surgically absent Evidence for sonographic Bradshaw's sign: yes CBD: visualized portions wnl, limited by overlying bowel gas Spleen: wnl Right Kidney: wnl Left Kidney: wnl Upper IVC: wnl Abd Aorta: proximal portion wnl, mid and distal portions obscured by overlying midline bowel gas The visualized liver is markedly heterogeneously hyperechoic. Evaluation for focal masses suboptimal due to the heterogeneity. The intrahepatic portion of the IVC and visualized proximal abdominal aorta are within normal limits. Gallbladder noted surgically absent. Common bile duct is unremarkable. T he visualized portions of the pancreas are heterogeneous. The spleen is unremarkable. Kidneys are s ymmetric and free of hydronephrosis. No renal lesions are seen. IMPRESSION: Suboptimal study. New or acute finding is not identified on images saved.
--- NOTE | 2019-12-05 10:39 | XR ---
EXAMINATION TYPE: XR abdomen 1V DATE OF EXAM: 12/05/2019 COMPARISON: NONE HISTORY: Pain TECHNIQUE: Single supine KUB image of the abdomen is obtained FINDINGS: Small bowel demonstrates no evidence for dilatation or air fluid levels. Gas and fecal material is seen in non-distended colon. No convincing evidence for pneumoperitoneum. No unusual calcifications. The lung bases are clear. The osseous structures are intact. IMPRESSION: 1. Overall nonobstructive bowel gas pattern.
== END | disposition home or self-care (01) ==
LOC: RADUSWWP 09:26
PROVIDERS: ATTEND Family Medicine
DX: R10.13 Epigastric pain (principal)
CPT/HCPCS: 74018; 76700

== ENCOUNTER → 2020-03-28 | Outpatient (CLI) | payer BC ==
--- NOTE | 2020-03-28 13:39 | XR ---
EXAMINATION TYPE: XR chest 2V DATE OF EXAM: 03/28/2020 COMPARISON: 06/03/2016 HISTORY: 44-year-old female preoperative evaluation. TECHNIQUE: Frontal and lateral views FINDINGS: The cardiomediastinal silhouette, aorta, and pulmonary vasculature are within normal limits. Lungs an d pleural spaces are clear. ACDF hardware. IMPRESSION: No acute cardiopulmonary process.
== END | disposition home or self-care (01) ==
LOC: LABWHC1 11:59
PROVIDERS: ATTEND Family Medicine
DX: Z01.818 Encounter for other preprocedural examination (principal)
CPT/HCPCS: 71046; 86850; 86900; 86901

== ENCOUNTER 2020-04-11 13:30 | Emergency (ER) | payer BC ==
--- NOTE | 2020-04-11 15:31 | US ---
EXAMINATION TYPE: US lower ext pseudo artery RT DATE OF EXAM: 04/11/2020 COMPARISON: NONE CLINICAL HISTORY: recent angiogram, possible clot vs pseudoanerysm. Palpable groin mass EXAM PERFORMED: Grayscale and color Doppler duplex imaging performed of the groin, post cardiac ciera ter to assess for pseudoaneurysm. SIDE PERFORMED: Right Color and Waveform Doppler performed to assess for the presence of pseudoaneurysm; Is there ultrasound evidence of a pseudoaneurysm: no Is there evidence of AV shunting: no Patent vessels. Small hypoechoic area superior to vessels measuring 0.6 x 0.5 x 0.8cm at patients are a of lump. IMPRESSION: There is likely small hematoma at the site of patient's palpable mass in the right groin.
[2020-04-11 16:08] VITALS: RESP 18; TEMP 98
--- NOTE | 2020-04-11 16:51 | ED ---
General Adult HPI - General Chief complaint: Recheck/Abnormal Lab/Rx Stated complaint: abn angiogram Time Seen by Provider: 04/11/20 13:57 Source: patient Mode of arrival: ambulatory Limitations: no limitations - History of Present Illness Initial comments: Patient is a 44-year-old female with past medical history of COPD, fibromyalgia who presents to the emergency department with reported groin swelling. The patient had an angiogram on April [address] at [facility]. Reports that she was told to look for any type of swelling in her groin at the site of where the did her access. Patient states that she has not had any issues up until the past several days when she noted a hard ball in the right groin. She denies any pain. No overlying redness or swelling. Denies any numbness or tingling into her lower extremity. Called her surgeon who recommended that she come into the ER for an ultrasound. Patient denies any fevers or chills. No other alleviating, precipitating or modifying factors - Related Data Home Medications Medication Instructions Recorded Confirmed Brimonidine Tartrate/Timolol 1 drop BOTH EYES TID 12/05/19 04/11/20 [Combigan 0.2%-0.5% Eye Drops] Latanoprost [Xalatan 0.005%] 1 drop BOTH EYES HS 12/05/19 04/11/20 Pantoprazole Sodium [Protonix] 40 mg PO BID 12/05/19 04/11/20 Sucralfate [Carafate] 1 gm PO TID 12/05/19 04/11/20 Butalb/APAP/Caff 50-325-40Mg 1 tab PO Q8H PRN 04/11/20 04/11/20 [Fioricet 50-325-40] Cholecalciferol [Vitamin D3 (25 1,000 unit PO DAILY 04/11/20 04/11/20 Mcg = 1000 Iu)] Citalopram Hydrobromide [CeleXA] 40 mg PO DAILY 04/11/20 04/11/20 Docusate [Colace] 100 mg PO DAILY PRN 04/11/20 04/11/20 Dorzolamide 2% [Trusopt 2%] 1 drops BOTH EYES BID 04/11/20 04/11/20 Folic Acid 1 mg PO DAILY 04/11/20 04/11/20 Pilocarpine 2% Ophth Soln [Isopto 1 drops BOTH EYES BID 04/11/20 04/11/20 Carpine 2%] Rimegepant Sulfate [Nurtec Odt] 75 mg PO DAILY PRN 04/11/20 04/11/20 Zonisamide [Zonegran] 100 mg PO BID PRN 04/11/20 04/11/20 Allergies Allergy/AdvReac Type Severity Reaction Status Date / Time cat dander Allergy Intermediate Congestion Verified 04/11/20 16:39 grass pollen Allergy Intermediate Congestion Verified 04/11/20 16:39 Sulfa (Sulfonamide Allergy Mild Rash/Hives Verified 04/11/20 16:39 Antibiotics) adhesive Allergy skin Verified 04/11/20 16:39 irritation and peeling codeine AdvReac Mild Bumps on Verified 04/11/20 16:39 skin, rash pravastatin AdvReac MUSCLE Verified 04/11/20 16:39 [place] Allergy Intermediate Congestion Uncoded 04/11/20 13:53 Review of Systems ROS Statement: Those systems with pertinent positive or pertinent negative responses have been documented in the HPI. ROS Other: All systems not noted in ROS Statement are negative. Past Medical History Past Medical History: COPD, Fibromyalgia, GERD/Reflux, Osteoarthritis (OA), Pneumonia Additional Past Medical History / Comment(s): glaucoma History of Any Multi-Drug Resistant Organisms: None Reported Past Surgical History: Bladder Surgery, Bowel Resection, Cholecystectomy, Hernia Repair, Hysterectomy, Tonsillectomy Additional Past Surgical History / Comment(s): 13 INCHES OF BOWEL REMOVED INFANT, SURGERY FOR ADHESIONS WITH MESH AT 8-8 YRS OLD., PARTIAL HYSTERECTOMY, UMBILICAL HERNIA., COLONOSCOPY.cystocele, rectocele, bladder suspension, angiogram Past Anesthesia/Blood Transfusion Reactions: Previous Problems w/ Anesthesia, Family History of Problems w/ Anesthesia, Motion Sickness Additional Past Anesthesia/Blood Transfusion Reaction / Comment(s): STATES HEART STOPPED DURING ONE SURGERY. HX OF BLOOD TRANSFUSION AN INFANT. PTS MOTHER HAS PONV. Past Psychological History: Anxiety Smoking Status: Current every day smoker Past Alcohol Use History: None Reported Past Drug Use History: None Reported - Past Family History Mother Family Medical History: Blood Disorder, Cancer Additional Family Medical History / Comment(s): BLADDER CANCER. PTS AUNT HAD BREAST CANCER ALSO. blood disorder pt unsure of name "she has to have her blood let out". Father Family Medical History: Cancer Additional Family Medical History / Comment(s): SKIN CANCER General Exam Limitations: no limitations Respiratory exam: Present: normal lung sounds bilaterally. Absent: respiratory distress, wheezes, rales, rhonchi, stridor Cardiovascular Exam: Present: regular rate, normal rhythm, normal heart sounds. Absent: systolic murmur, diastolic murmur, rubs, gallop, clicks GI/Abdominal exam: Present: soft, normal bowel sounds, other (small nodule right groin measuring 2 x 2 cm. ). Absent: distended, tenderness, guarding, rebound, rigid Extremities exam: Present: normal inspection, other (2+ DP and PT pulses. Normal cap refill) Course Vital Signs 04/11/20 04/11/20 04/11/20 13:49 16:00 17:13 Temperature 98.4 F 98.0 F Pulse Rate 61 67 57 L Respiratory 16 18 18 Rate Blood Pressure 131/78 125/81 120/82 O2 Sat by Pulse 99 96 97 Oximetry Medical Decision Making - Medical Decision Making Upon arrival patient was placed into room 28. Thorough history and physical exam was performed. No overlying areas of cellulitis. Ultrasound was performed of the right groin which demonstrates a small hematoma. No signs of pseudoaneurysm. The results are discussed patient. I did discuss results with Dr. Liang at 1650. She may be discharged home at this time. He has follow-up with him on Wednesday. The patient is a new or worsening symptoms she should return to the emergency room. Patient was discharged home in stable condition Disposition Clinical Impression: Groin hematoma Disposition: HOME SELF-CARE Condition: Stable Instructions (If sedation given, give patient instructions): Hematoma (ED) Additional Instructions: these follow-up with your neurosurgeon. Return to the emergency room for any new or worsening symptoms Is patient prescribed a controlled substance at d/c from ED?: No Referrals: Terese Ramos MD [Primary Care Provider] - 1-2 days Time of Disposition: 16:51
[2020-04-11 17:15] VITALS: BP 120/82; PULSE 57
== END 2020-04-11 17:13 | disposition home or self-care (01) ==
LOC: EC 13:30
DX: S30.1XXA Contusion of abdominal wall, initial encounter (principal); K21.9 Gastro-esophageal reflux disease without esophagitis; H40.9 Unspecified glaucoma; F41.9 Anxiety disorder, unspecified; F17.200 Nicotine dependence, unspecified, uncomplicated; Z79.899 Other long term (current) drug therapy; Z91.09 Other allergy status, other than to drugs and biological substances; Z91.048 Other nonmedicinal substance allergy status; Z88.2 Allergy status to sulfonamides; Z88.5 Allergy status to narcotic agent; Z88.8 Allergy status to other drugs, medicaments and biological substances; Z91.018 Allergy to other foods; Z90.49 Acquired absence of other specified parts of digestive tract; Z90.710 Acquired absence of both cervix and uterus; X58.XXXA Exposure to other specified factors, initial encounter
CPT/HCPCS: 93975; 99283

== ENCOUNTER → 2020-07-22 | Outpatient (CLI) | payer BC ==
--- NOTE | 2020-07-22 10:24 | XR ---
EXAMINATION TYPE: XR chest 2V DATE OF EXAM: 07/22/2020 COMPARISON: NONE HISTORY: Chest pain TECHNIQUE: Frontal and lateral views of the chest are obtained. FINDINGS: There is no focal air space opacity. No evidence for pneumothorax. No pleural effusion. The cardiac silhouette size is within normal limits. The osseous structures are grossly intact. IMPRESSION: 1. No acute cardiopulmonary process.
--- NOTE | 2020-07-22 12:15 | US ---
EXAMINATION TYPE: US duplex aorta DATE OF EXAM: 07/22/2020 COMPARISON: ct 12/05/2019, US 12/05/2019 CLINICAL HISTORY: I71.4 Abdominal aortic aneurysm, without rupture. Grandfather had AAA. Smoker. EXAM MEASUREMENTS: Abdominal Aorta: Proximal: 2.3 x 1.8 x 2.1 cm Mid: 1.4 x 1.7 x 1.8 cm Distal: 1.4 x 1.5 x 1.3 Bifurcation: 0.9 cm 0.9 cm Atherosclerotic changes visualized, no sonographic evidence of AAA IMPRESSION: No evidence for abdominal aortic aneurysm.
== END | disposition home or self-care (01) ==
LOC: RADUSWWP 09:59
PROVIDERS: ATTEND Family Medicine
DX: I71.4 Abdominal aortic aneurysm, without rupture (principal); F17.200 Nicotine dependence, unspecified, uncomplicated
CPT/HCPCS: 71046; 93979

== ENCOUNTER → 2020-09-12 | Outpatient (CLI) | payer BC ==
--- NOTE | 2020-09-16 08:35 | MM ---
Reason for exam: screening (asymptomatic). Last mammogram was performed 6 years and 11 months ago. History: Family history of breast cancer in aunt. Took hormonal contraceptives for 12 years beginning at age 14. Physical Findings: A clinical breast exam by your physician is recommended on an annual basis and results should be correlated with mammographic findings. MG 3D Screening Mammo W/Cad Bilateral CC and MLO view(s) were taken. Prior study comparison: October 10, 2013, bilateral digital screening mammo w/CAD. June 18, 2008, bilateral digital screening mammogram. The breast tissue is heterogeneously dense. This may lower the sensitivity of mammography. Focal asymmetry new right MLO view, may be summation. This finding is changed when compared with previous exams. ASSESSMENT: Incomplete: need additional imaging evaluation, BI-RAD 0 RECOMMENDATION: Special view mammogram of the right breast. If lesion persists on supplemental views, image directed ultrasound is recommended. [facility] will attempt to contact patient to return for supplemental views and ultrasound if indicated.
== END | disposition home or self-care (01) ==
LOC: RADMAMWWP 14:29
PROVIDERS: ATTEND Family Medicine
DX: Z12.31 Encounter for screening mammogram for malignant neoplasm of breast (principal); Z80.3 Family history of malignant neoplasm of breast
CPT/HCPCS: 77063; 77067

== ENCOUNTER → 2020-09-17 | Outpatient (CLI) | payer BC ==
--- NOTE | 2020-09-17 12:12 | MM ---
Reason for exam: additional evaluation requested from abnormal screening. Last mammogram was performed less than 1 month ago. History: Family history of breast cancer in aunt. Took hormonal contraceptives for 12 years beginning at age 14. Physical Findings: Nurse Summary: 0.5cm adenopathy at right axilla (nurse mj). MG 3D Work Up W/Cad RT Spot compression CC and LM view(s) were taken of the right breast. Prior study comparison: September 12, 2020, bilateral MG 3d screening mammo w/cad. October 10, 2013, bilateral digital screening mammo w/CAD. The breast tissue is heterogeneously dense. This may lower the sensitivity of mammography. There is no discrete abnormality. No significant new findings when compared with previous films. These results were verbally communicated with the patient and result sheet given to the patient on 09/17/20. ASSESSMENT: Benign, BI-RAD 2 RECOMMENDATION: Return to routine screening mammogram schedule for both breasts. Manage on a clinical basis with regard to axilla area that is decreasing.
== END | disposition home or self-care (01) ==
LOC: RADMAMWWP 07:58
PROVIDERS: ATTEND Family Medicine
DX: R92.8 Other abnormal and inconclusive findings on diagnostic imaging of breast (principal)
CPT/HCPCS: 77061; 77065

== ENCOUNTER → 2021-08-22 | Outpatient (CLI) | payer BC ==
--- NOTE | 2021-08-22 14:22 | MM ---
Reason for exam: clinical finding. Last mammogram was performed 11 months ago. History: Family history of breast cancer in aunt. Took hormonal contraceptives for 12 years beginning at age 14. Physical Findings: A clinical breast exam by your physician is recommended on an annual basis and results should be correlated with mammographic findings. MG 3D Diag Mammo W/Cad LT CC and MLO view(s) were taken of the left breast. Prior study comparison: September 17, 2020, right breast MG 3d work up w/cad RT. September 12, 2020, bilateral MG 3d screening mammo w/cad. The breast tissue is heterogeneously dense. This may lower the sensitivity of mammography. Left nipple/areolar thickening and possible retraction. Retroareolar density. These results were verbally communicated with the patient and result sheet given to the patient on 08/22/21. ASSESSMENT: Incomplete: need additional imaging evaluation, BI-RAD 0 RECOMMENDATION: Ultrasound of the left breast. Manage patient on a clinical basis.
--- NOTE | 2021-08-22 14:26 | USB ---
Reason for exam: additional evaluation requested from abnormal screening. History: Family history of breast cancer in aunt. Took hormonal contraceptives for 12 years beginning at age 14. US Breast LT Left complete breast ultrasound includes all four quadrants, the retroareolar region and axilla. Finding demonstrates a 0.3 x 0.3 x 0.2cm oval, cystic lesion at 3 o'clock, a 1.5 x 2.1 x 0.8cm lobular, irregular, solid, hypoechoic, vascular lesion at 9 o'clock posterior nipple for which a biopsy is recommended and a 1.1 x 1.0 x 0.6cm lymph node at the axilla. These results were verbally communicated with the patient and result sheet given to the patient on 08/22/21. ASSESSMENT: Suspicious, BI-RAD 4 RECOMMENDATION: Ultrasound core biopsy of the left breast. Called Dr. Farris's office with mammographic findings and has scheduled an appointment for Dr. Dias. Biopsy scheduled for 08/27/21 1 o'clock. PRELIMINARY REPORT CALLED AND FAXED TO DR. DIAS ON 08/22/21.
== END | disposition home or self-care (01) ==
LOC: RADMAMWWP 10:31
PROVIDERS: ATTEND Obstetrics & Gynecology
DX: N63.0 Unspecified lump in unspecified breast (principal); Z80.3 Family history of malignant neoplasm of breast
CPT/HCPCS: 77061; 77065

== ENCOUNTER → 2021-08-27 | Day surgery (SDC) | payer BC ==
[2021-08-27 13:42] VITALS: BP 109/70; PULSE 67; RESP 16; TEMP 97.8
--- NOTE | 2021-08-27 14:08 | USB ---
EXAMINATION TYPE: US biopsy breast VAD LT, MG diagnostic mammo LT wo CAD DATE OF EXAM: 08/27/2021 CLINICAL HISTORY: R92.8 Abnormal mammogram. TECHNIQUE: Ultrasound guided core biopsy of left posterior nipple 9:00 position. COMPARISON: NONE FINDINGS: The procedure of ultrasound guided core biopsy was explained to the patient. Benefits, alt ernatives, and risks were discussed. An informed consent was then obtained. The patient was placed in supine positioning for imaging and for the procedure. The overlying skin w as prepped and draped in usual sterile fashion. Lidocaine buffered with bicarbonate was used as anes thetic into the skin and subcutaneous tissue up to area of concern in the left breast. Under ultrasound guidance, a 12-gauge vacuum assisted biopsy gun device was used to obtain 4 core abril ples. Following this, a biopsy clip was left in lesion. Assess procedural mammogram demonstrates ap propriate clip placement. The patient tolerated the procedure well without any immediate complication. The patient was kept in the radiology department for short stay after the procedure and then discharged home in stable condi tion. IMPRESSION: Successful, uncomplicated ultrasound guided core biopsy of area of concern in the left po sterior nipple 9:00 position, full pathology results to follow.
== END | disposition home or self-care (01) ==
LOC: RADUSWWP 12:11
PROVIDERS: ATTEND Student in an Organized Health Care Education/Training Program
DX: N60.32 Fibrosclerosis of left breast (principal); N64.1 Fat necrosis of breast; N61.1 Abscess of the breast and nipple
CPT/HCPCS: 88305; 77065; 19083; A4648; J2001

== ENCOUNTER → 2022-03-12 | Outpatient (CLI) | payer BC ==
--- NOTE | 2022-03-12 11:18 | MM ---
Reason for Exam: Additional evaluation requested from prior study. Last mammogram was performed 1 year(s) and 5 month(s) ago. Patient History: Menarche at age 10. First Full-Term at age 26. Hysterectomy at age 31. Perimenopausal. Patient has history of breast feeding. Hormonal Contraceptives for 12 years from age 14 until age 26. 08/27/2021, Benign Core Biopsy on the left side. Maternal aunt had breast cancer. Risk Values: Radha 5 year model risk: 1.3%. NCI Lifetime model risk: 12.1%. Prior Study Comparison: No prior studies available for comparison. Tissue Density: The breast tissue is heterogeneously dense. This may lower the sensitivity of mammography. Findings: Analyzed By CAD. Surgical clip is within the subareolar left breast. There is some skin thickening in the left periareolar region a palpable area previously biopsied. Pattern otherwise appears stable. No suspicious groups of microcalcifications, spiculated or lobular masses, architectural distortion or other secondary signs of malignancy are mammographically apparent. Overall Assessment: Probably benign, BI-RAD 3 Management: Diagnostic Mammogram of the left breast in 6 months. A negative mammogram report should not preclude additional follow up of suspicious palpable abnormalities. Patient should continue monthly self breast exam. A clinical breast exam by your physician is recommended on an annual basis and results should be correlated with mammographic findings. Electronically signed and approved by: Salazar Victor D.O. Radiologis
--- NOTE | 2022-03-12 12:40 | USB ---
Reason for Exam: Clinical finding. Patient History: Menarche at age 10. First Full-Term at age 26. Hysterectomy at age 31. Perimenopausal. Patient has history of breast feeding. Hormonal Contraceptives for 12 years from age 14 until age 26. 08/27/2021, Benign Core Biopsy on the left side. Maternal aunt had breast cancer. Risk Values: Radha 5 year model risk: 1.3%. NCI Lifetime model risk: 12.1%. Technique: Method: Whole Breast Handheld. Prior Study Comparison: 09/17/2020 Right Diagnostic Mammogram, [facility]. 08/22/2021 Left Diagnostic Mammogram, [facility]. 08/27/2021 Left Diagnostic Mammogram, [facility]. Findings: The whole breast of both breasts, the axilla of both breasts and the retroareolar of both breasts were scanned. Right breast: At the 10:00 position 2 cm from the nipple is a simple appearing cyst measuring 0.3 x 0.3 x 0.4 cm. No suspicious solid lesions are evident within the right breast. Axillary lymph node is noted. Left breast: There may be some mild skin thickening measuring 0.6 cm in thickness adjacent to the nipple. This area corresponds to the area of pain and the palpable abnormality. This area appears superficial to the area biopsied. No recurrent hypoechoic area at the biopsy area is identified. Overall Assessment: Probably benign, BI-RAD 3 Management: Diagnostic Mammogram of the left breast in 6 months. Diagnostic Breast Ultrasound of the left breast in 6 months. A clinical breast exam by your physician is recommended on an annual basis and results should be correlated with mammographic findings. Electronically signed and approved by: Salazar Victor D.O. Radiologis
== END | disposition home or self-care (01) ==
LOC: RADUSWWP 09:44
PROVIDERS: ATTEND Family Medicine
DX: N61.0 Mastitis without abscess (principal); Z80.3 Family history of malignant neoplasm of breast; Z98.890 Other specified postprocedural states
CPT/HCPCS: 77062; 77066